=== PATIENT | female | born 1950 | race Caucasian/White ===

== ENCOUNTER 2017-01-31 10:28 | Observation (INO) | payer MEDICARE, OTHER ==
--- NOTE | ~2017-01-31 | HP ---
History And Physical [address] [id number] [facility] [place]. [address] NAME: JACKELINE GARCIA : 50 STATUS : ADM Kenna PAT#: [id number] AGE: 66 ADM/REG DATE : 01/31/17 MR#: [id number] REPORT SERV DATE: 01/31/17 DICTATED BY: MIGUEL NOVAK DATE: 01/31/17 REPORT STATUS : Draft TRANSCRIBED BY: MODFrancesco DATE: 01/31/17 DATE OF ADMISSION: 01/31/2017 OUTPATIENT STRUCTURAL ENGINEERING PROJECT MANAGER: Ricky Foster M.D. OUTPATIENT ULTIMATE HOOPS TRAINER: Mendy Felton MD HISTORY OF PRESENT ILLNESS: This is a 66-year-old female, who comes in for shortness of breath. The patient has been labeled as COPD, but there is no formal test done and no fish bailer whom she has been seeing. She has obstructive sleep apnea, in which she wears CPAP at home, and she said that she is more or less compliant with it. She was doing well and she remembered being exposed to a relative who has pneumonia right now, and three days prior to admission, she started having some low-grade temperature with chills and sweats. This was not documented because her thermometer is not working right. She then started having some congestion, cough productive of yellowish phlegm, mild shortness of breath, but she got scared because of her exposure and her previous history of pneumonia and went to the emergency room. In the ER, the patient was given Solu-Medrol, DuoNeb and they did an ABG on her, which showed 7.39/45/62 on room air, so they were seeing that she was improving and they tried to discharge her. However, her saturation dropped to 88% on minimal exertion. We are now called to admit the patient. The patient is feeling much better now compared to on admission, but she said that she is still not back to her baseline. She denied any hemoptysis, urinary or bowel changes, nausea or vomiting, abdominal pain or chest pain, near syncopal or syncopal episode. No new rashes or no new joint pains, and the rest of 14-point review of systems is negative except as above. PAST MEDICAL HISTORY: Includes a previous thyroidectomy for multinodular goiter, hypertension, hypercholesterolemia, diabetes, rheumatoid arthritis, depression and anxiety, tonsillectomy, bilateral tubal ligation, cataract surgery, bilateral rotator cuff tear repair, bilateral knee replacement, chronic anemia, history of atrial fibrillation with cardioversion, history of CHF. ALLERGIES: SHE IS ALLERGIC TO TRAMADOL, HYDROCODONE, HYDROCHLOROTHIAZIDE AND OFLOXACIN, REACTION OF WHICH I DO NOT KNOW. MEDICATIONS: Include diltiazem, Cymbalta, Lasix, Neurontin, levothyroxine, lisinopril, metformin, Prandin, Xarelto, sulfasalazine, and trazodone. FAMILY HISTORY: Positive for diabetes, hypertension, and rheumatoid arthritis. SOCIAL HISTORY: The patient used to smoke. No alcohol or recreational drug use. PHYSICAL EXAMINATION: GENERAL: The patient is alert and oriented x3, in mild cardiorespiratory distress. VITAL SIGNS: Include blood pressure of 97/56, temperature of 98.6, pulse rate of 97, respirations of 18, saturating at 93% on room air. NECK: She has supple neck. No JVD or carotid bruit. No lymphadenopathy. History And Physical [address] [address] NAME: JACKELINE GARCIA : 50 STATUS : ADM Kenna PAT#: [id number] AGE: 66 ADM/REG DATE : 01/31/17 MR#: [id number] REPORT SERV DATE: 01/31/17 DICTATED BY: MIGUEL NOVAK DATE: 01/31/17 REPORT STATUS : Draft TRANSCRIBED BY: MELODIE DATE: 01/31/17 HEENT: [place] conjunctivae. Anicteric sclerae. No pharyngeal erythema. LUNGS: Fair air entry. Some occasional wheezes. No crackles. HEART: Regular rate and rhythm. No murmurs. ABDOMEN: Positive bowel sounds. Soft and nontender. No masses. EXTREMITIES: Fair pulses. No edema. NEURO: Nonlocalizing. LABORATORY DATA: Reveals a creatinine of 1.14, BUN of 17, glucose of 195. Liver enzymes are normal. Lactate is 2.8. White count of 10.2, H and H of 9.7 and 31.6 with a platelet of 620. Urinalysis is unremarkable. Chest x-ray did not show any acute infiltrates. Flu test is negative. Strep throat is negative. ASSESSMENT: 1. Chronic obstructive pulmonary disease exacerbation. 2. History of obstructive sleep apnea. 3. Acute bronchitis. 4. History of congestive heart failure. 5. History of atrial fibrillation with cardioversion. 6. Diabetes. 7. Chronic anemia. 8. Chronic kidney disease 3. 9. Depression and anxiety. 10.Rheumatoid arthritis. PLAN: The patient likely has a viral infection causing URI and mild COPD exacerbation. Fortunately, she has a normal WBC, afebrile, and an x-ray without infiltrates. We will place her on observation and start IV Solu-Medrol, oxygen, and bronchodilator. We will continue her home meds and have her family bring her CPAP here. Check EKG, hemoglobin A1c, TSH. Place her on subcu insulin protocol. This has been explained to the patient, and she agreed and understood the plan. GIL/MELODIE Miguel Novak M.D. / [id number] CC: Deandre Bertrand Jr, MD Owen F. Speer, DO
--- NOTE | ~2017-01-31 | DS ---
Discharge Summary [facility] [address] [place]. [address] NAME: JACKELINE GARCIA : 50 STATUS : DIS Kenna PAT#: [id number] AGE: 66 ADM/REG DATE : 01/31/17 MR#: [id number] REPORT SERV DATE: 02/02/17 DICTATED BY: MIGUEL NOVAK DATE: 02/01/17 REPORT STATUS : Draft TRANSCRIBED BY: MODL DATE: 02/01/17 ADMISSION DATE: 01/31/2017 DISCHARGE DATE: 02/01/2017 OUTPATIENT COLLECTOR OF PORT: Ricky Foster M.D. OUTPATIENT MILLER HELPER: Mendy Felton M.D. FINAL DIAGNOSES: 1. Chronic obstructive pulmonary disease exacerbation. 2. Acute bronchitis. 3. Obstructive sleep apnea. 4. History of congestive heart failure. 5. History of atrial fibrillation with cardioversion. 6. Diabetes. 7. Chronic anemia. 8. Chronic kidney disease, III. 9. Depression and anxiety. 10.Rheumatoid arthritis. DIAGNOSTIC EXAM: Chest x-ray showing no acute cardiopulmonary disease. HOSPITAL COURSE: Please refer to the H and P done by myself yesterday. Briefly, this is a 66-year-old female, who comes in for shortness of breath. The patient has a history of COPD, but has no formal PFTs done or a dog hair clipper who saw her. She has obstructive sleep apnea for which she uses CPAP at home. The patient got exposed to her family member with pneumonia and then she started having this undocumented fever, chills, and sweats, some increasing shortness of breath, got scared and went to the emergency room. In the ER, the patient was given Solu-Medrol and bronchodilators, was about to be discharged; however, her saturation dropped to 88% on ambulation on room air. She was then referred for observation. The patient got admitted. We did a flu test that was negative. A chest x-ray, which did not show any pneumonia. She remained afebrile with stable vital signs. White count is normal. Lactate was initially elevated at 2.8, which went down to 2.0 and a procalcitonin is 0.07. The patient's saturation on room air remained at 91%. We wanted to put her on oxygen; however, she refused she says she does not want oxygen. She wore her CPAP at night and today at room air, she is already 98%, but it drops down to 88% on ambulation. We offered some oxygen on her and she said she is not ready for that. She knows that it will be coming. Her sister is already on oxygen and she does not want it at this time. The patient feels much better and is assure that she does not have pneumonia so, she is wanting to go home. So, we will be discharging her with the above diagnosis. She will be following up with her PCP, Dr. Lang Chapa, in one to two weeks. Follow up with her Spanish Language Lecturer and Mobile Nurse as needed and as previously scheduled. She will be on the following medications: Cartia 180 mg a day XT, Cymbalta 60 mg a day, Lasix 40 mg a day, Neurontin 800 mg every morning and 1600 mg at bedtime, levothyroxine 137 mcg a day, lisinopril 20 mg a day, Prandin 1 mg three times a day, Xarelto 20 mg at bedtime, sulfasalazine 500 mg three times a day, Desyrel 50 mg at bedtime, metformin 500 mg twice a day, and I will give her a Discharge Summary [address] [address] NAME: JACKELINE GARCIA : 50 STATUS : DIS Kenna PAT#: [id number] AGE: 66 ADM/REG DATE : 01/31/17 MR#: [id number] REPORT SERV DATE: 02/02/17 DICTATED BY: MIGUEL NOVAK DATE: 02/01/17 REPORT STATUS : Draft TRANSCRIBED BY: MELODIE DATE: 02/01/17 Medrol Dosepak and she will get a prescription for Medrol Dosepak to be taken as directed and a prescription for albuterol two puffs q.6 hours p.r.n. shortness of breath. It might be worthwhile when the patient gets better to get a baseline PFTs and if it is grossly abnormal, she might need a dog hair clipper as an outpatient basis, but I will defer this to her PCP. This has been explained to her. TIME SPENT: 40 minutes. GIL/MELODIE Miguel Novak M.D. / [id number] CC: Deandre Bertrand Jr, MD Owen F. Speer, DO Michael Love, M.D. Melinda J. Garcia-Rosell, MD
[~2017-01-31 10:28] MED LIST: ACET500CAP PO; CARDCD300 PO; CENTRUM PO; CYMBALTA60 PO; FORTAMET500 MG PO; GLUMETZA500 MG PO; L20 PO; L40 PO; LISINOPRIL40 MG PO; MEP50TAB PO; MULTIPLE VIT PO; NABUMETONE750 MG PO; NEUR800 PO; NORV25 PO; NORV5 PO; P10 PO; PLAQ200B PO; PRAND1 PO; PRAVACHOL40 MG PO; PRED50B PO; PROAIR HFA INH; RELA5 PO; RYTHMOL225 MG PO; SYN.05 PO; SYN125 PO; T PO; TRAZ50 PO; XARELTO20 MG PO; ZESTRIL20 MG PO; ZOFRAN ODT4 MG PO
[2017-01-31 11:18] LABS: INFLUENZA A SCREEN NEGATIVE (NEGATIVE); INFLUENZA B SCREEN NEGATIVE (NEGATIVE)
[2017-01-31 11:35] LABS: BASOPHILS 0.5 %; BASOPHILS ABSOLUTE 0.05 10/3/uL (0.0-0.16); EOSINOPHILS 1.7 %; EOSINOPHILS ABSOLUTE 0.17 10/3/uL (0.0-0.53); ER CBC TAT 0 Hrs 13 Mins; HEMATOCRIT 31.6 % (36.0-48.0); HEMOGLOBIN 9.7 g/dL (12.0-16.0); IMMATURE GRANULOCYTES 0.2 %; IMMATURE GRANULOCYTES ABSOLUTE 0.02 10/3/uL (0.0-0.11); LYMPHOCYTES 20.3 %; LYMPHOCYTES ABSOLUTE 2.07 10/3/uL (0.67-4.30); MANUAL DIFF NO %; MEAN CORPUS HGB CONC 30.7 g/dL (32.0-36.0); MEAN CORPUSCULAR HEMOGLOB 24.4 pg (26.0-34.0); MEAN CORPUSCULAR VOLUME 79.6 fL (80-100); MEAN PLATELET VOLUME 9.2 fL (9.2-13.0); MONOCYTES 6.5 %; MONOCYTES ABSOLUTE 0.66 10/3/uL (0.21-1.20); NEUTROPHILS 70.8 %; NEUTROPHILS ABSOLUTE 7.24 10/3/uL (2.02-8.40); NUCLEATED RED BLOOD CELLS 0.4 /100WBC (0-0); PLATELET COUNT 620 10/3/uL (150-400); RBC DISTRIBUTION WIDTH 18.7 % (12.0-16.0); RED CELL COUNT 3.97 10/6/uL (4.0-5.6); WHITE BLOOD CELLS 10.2 10/3/uL (4.5-10.5)
[2017-01-31 11:45] LABS: A/G RATIO 0.7 (0.7-1.9); ALBUMIN 3.1 G/DL (3.5-5.0); BUN (BLOOD UREA NITROGEN) 17 MG/DL (6-23); CHLORIDE, SERUM 100 MMOL/L (96-112); CO2 (CARBON DIOXIDE) 28 MMOL/L (24-34); CREATININE 1.14 MG/DL (0.55-1.02); GFR AFRICAN AMERICAN 58 ML/MIN (>=60); GFR NON AFRICAN AMERICAN 50 ML/MIN (>=60); GLOBULIN 4.2 G/DL (2.5-4.1); SGOT(AST) 16 U/L (5-40); SGPT(ALT) 14 U/L (5-65); SODIUM, SERUM 141 MMOL/L (135-148); TOTAL BILIRUBIN 0.2 MG/DL (0-1.2); TOTAL PROTEIN 7.3 G/DL (6.0-8.5)
[2017-01-31 11:46] LABS: ALKALINE PHOSPHATASE 106 U/L (45-117); CALCIUM, SERUM 8.1 MG/DL (8.5-10.4); GLUCOSE, SERUM 195 MG/DL (60-99); POTASSIUM, SERUM 3.6 MMOL/L (3.5-5.3)
[2017-01-31 12:03] LABS: ASCORBIC ACID (UR NOT ORDER) NEG (NEG); BILIRUBIN, URINE NEGATIVE (NEG); ER URINALYSIS TAT 0 Hrs 08 Mins; KETONE, URINE NEGATIVE (NEG); LEUKOCYTE ESTERASE(NOT OR NEG (NEG); NITRITE (URINE) NEG (NEG); WBC (NOT ORDERED) (RFLEX) 2 (0-5)
[2017-01-31] MEDS ORDERED: LEVOTHYROXIN137 MCG PO (13:28)
[2017-01-31] MEDS ORDERED: TAZTIA XT PO (13:29)
[2017-01-31] MEDS ORDERED: L40 PO (13:29)
[2017-01-31] MEDS ORDERED: CYMBALTA60 PO (13:29)
[2017-01-31] MEDS ORDERED: PRIN20 PO (13:29)
[2017-01-31] MEDS ORDERED: TRAZ50 PO (13:31)
[2017-01-31] MEDS ORDERED: FORTAMET500 MG PO (13:32)
[2017-01-31] MEDS ORDERED: NEUR800 PO ×2 (13:32)
[2017-01-31] MEDS ORDERED: SAS500 PO (13:33)
[2017-01-31] MEDS ORDERED: PRAND1 PO (13:33)
[2017-01-31] MEDS ORDERED: XARELTO20 MG PO (13:33)
[2017-01-31 18:12] LABS: FREE T4 1.44 NG/DL (0.76-1.46)
[2017-02-01 02:57] LABS: PROCALCITONIN 0.07 ng/mL (<0.5)
[2017-02-01 08:37] LABS: BUN (BLOOD UREA NITROGEN) 19 MG/DL (6-23); CALCIUM, SERUM 8.9 MG/DL (8.5-10.4); CHLORIDE, SERUM 104 MMOL/L (96-112); CO2 (CARBON DIOXIDE) 24 MMOL/L (24-34); CREATININE 1.04 MG/DL (0.55-1.02); GFR AFRICAN AMERICAN 65 ML/MIN (>=60); GFR NON AFRICAN AMERICAN 56 ML/MIN (>=60); GLUCOSE, SERUM 272 MG/DL (60-99); POTASSIUM, SERUM 3.8 MMOL/L (3.5-5.3); SODIUM, SERUM 140 MMOL/L (135-148)
[2017-02-01] MEDS ORDERED: MEDROLPAK4 PO (09:14)
[2017-02-01] MEDS ORDERED: PROVHFA INH (09:15)
[2017-02-09] MEDS ORDERED: PEP20 PO (16:00)
[2017-02-09] MEDS ORDERED: BREO ELLIPTA INH (16:00)
== END 2017-02-01 09:52 | disposition home or self-care (01) ==
LOC: ER 10:28 → CDU1 15:23 → CDU2 15:47
PROVIDERS: Internal Medicine; Nurse Practitioner Family
DX: J44.1 Chronic obstructive pulmonary disease with (acute) exacerbation (principal); J20.9 Acute bronchitis, unspecified; J44.0 Chronic obstructive pulmonary disease with (acute) lower respiratory infection; G47.33 Obstructive sleep apnea (adult) (pediatric); E78.00 Pure hypercholesterolemia, unspecified; M06.9 Rheumatoid arthritis, unspecified; I13.0 Hypertensive heart and chronic kidney disease with heart failure and stage 1 through stage 4 chronic kidney disease, or unspecified chronic kidney disease; F32.9 Major depressive disorder, single episode, unspecified; F41.9 Anxiety disorder, unspecified; N18.3 Chronic kidney disease, stage 3 (moderate); I48.91 Unspecified atrial fibrillation; E11.22 Type 2 diabetes mellitus with diabetic chronic kidney disease; I50.9 Heart failure, unspecified; D63.1 Anemia in chronic kidney disease; Z99.81 Dependence on supplemental oxygen; Z88.8 Allergy status to other drugs, medicaments and biological substances; Z79.01 Long term (current) use of anticoagulants; Z79.899 Other long term (current) drug therapy; F17.200 Nicotine dependence, unspecified, uncomplicated
CPT/HCPCS: 36600; 71020; 80048; 80053; 81001; 82330; 82803; 82947; 82962; 83605; 83735; 83880; 84132; 84145; 84295; 84439; 84443; 85014; 85025; 87040; 87070; 87804; 87880; 93005; 94640; 96374; 96376; 99284; A9270-GY; G0378; J2920; J2930

== ENCOUNTER 2017-02-17 10:10 | Day surgery (SDC) | payer MEDICARE, OTHER ==
--- NOTE | ~2017-02-17 | EGD ---
EGD REPORT [facility] [address] [address] NAME: JACKELINE COX : 50 STATUS : REG [facility]#: [id number] AGE: 66 ADM/REG DATE : 02/17/17 MR#: [id number] REPORT SERV DATE: 02/17/17 DICTATED BY: RICKY IZAGUIRRE DATE: 02/17/17 REPORT STATUS : Draft TRANSCRIBED BY: [facility] DATE: 02/17/17 Endoscopy Center Patient Name: Jackeline Cox Date of : 1950 Attending MD: RICKY IZAGUIRRE MD Procedure Date No Time: 02/17/2017 Procedure: Upper GI endoscopy Indications: For therapy of gastric polyps Referring MD: Lang Chapa Medicines: Propofol per Anesthesia Complications: No immediate complications. Procedure: Pre-Anesthesia Assessment: - ASA Grade Assessment: IV - A patient with severe systemic disease that is a constant threat to life. After obtaining informed consent, the endoscope was passed under direct vision. Throughout the procedure, the patient's blood pressure, pulse, and oxygen saturations were monitored continuously. The GIF [id number] was introduced through the mouth, and advanced to the duodenal bulb. The upper GI endoscopy was accomplished without difficulty. The patient tolerated the procedure well. Findings: The examined esophagus was normal. A single 15 mm pedunculated and sessile polyp with no bleeding and stigmata of recent bleeding was found on the greater curvature of the gastric body. Area was successfully injected with 5 mL of a 1:10,000 solution of epinephrine for hemostasis. An endoloop was maneuvered over the polyp stalk and closed at the mucosal attachment prior to removal in order to prevent bleeding. Resection and retrieval were complete. Estimated blood loss was minimal. Five hemostatic clips were successfully placed. Bleeding had stopped at the end of the procedure. Impression: - Normal esophagus. - A single gastric polyp. Resected and retrieved. Injected. Clips were placed. Recommendation: - The patient will be observed post-procedure, until all discharge criteria are met. - Continue present medications. - The findings and recommendations were discussed with the patient and their family. - After the procedure, if you experience any pain in abdomen or chest,shortness of breath,fever,chills,blood EGD REPORT [address] [address] NAME: JACKELINE COX : 50 STATUS : REG [facility] [place] PAT#: [id number] AGE: 66 ADM/REG DATE : 02/17/17 MR#: [id number] REPORT SERV DATE: 02/17/17 DICTATED BY: RICKY IZAGUIRRE. DATE: 02/17/17 REPORT STATUS : Draft TRANSCRIBED BY: [employer] DATE: 02/17/17 in stool,rectal bleeding,vomiting of any material,nausea,black stools or weakness or dizziness, GO TO THE EMERGENCY IMMEDIATELY!!!!!!!!! Procedure Code(s): --- Professional --- 37360, Esophagogastroduodenoscopy, flexible, transoral; with control of bleeding, any method 59116, Unlisted procedure, intestine Diagnosis Code(s): --- Professional --- K31.7, Polyp of stomach and duodenum CPT copyright 2013 [employer]. All rights reserved. The codes documented in this report are preliminary and upon wedding florist review may be revised to meet current compliance requirements. Ricky Izaguirre MD RICKY IZAGUIRRE MD 02/17/2017 1:43 PM This report has been signed electronically. Number of Addenda: 0 Note Initiated On: 02/17/2017 12:52 PM Scope Withdrawal Time 0 hours 0 minutes 0 seconds [id number] [id number]
--- NOTE | ~2017-02-17 | OP ---
Record Of Operation [facility] [address] [place]. [address] NAME: JACKELINE GARCIA : 50 [place] : [place] [facility] [place] [id number] AGE: 66 ADM/REG DATE : 02/17/17 MR#: [id number] REPORT SERV DATE: 02/18/17 DICTATED BY: RICKY IZAGUIRRE DATE: 02/17/17 REPORT STATUS : Draft TRANSCRIBED BY: MODL DATE: 02/17/17 DATE OF PROCEDURE: ADDENDUM: Addendum to the EMR note. PROCEDURE: EGD, polypectomy, and clipping. INDICATION: The patient with large hyperplastic gastric polyp which have been bleeding. SEDATION: Diprivan. FINDING: The Olympus video scope was passed into the esophagus, it was normal. In the stomach there was a large gastric polyp with an eroded surface that was on a semi pedunculated. The stalk was injected with epinephrine prior to removal. Endoloop was placed. However, with closure of the endo-loop, the polyp was transected. There was some mild oozing. Five clips were placed on the area with no further bleeding. IMPRESSION: Successful gastric polypectomy with clipping the prevent postprocedure bleeding. MG/MELODIE Ricky Izaguirre M.D. / [id number] CC: Boris Curtis DO
[~2017-02-17 10:10] MED LIST changes: +BREO ELLIPTA INH; +LEVOTHYROXIN137 MCG PO; +MEDROLPAK4 PO; +PEP20 PO; +PRIN20 PO; +PROVHFA INH; +SAS500 PO; +TAZTIA XT PO
== END 2017-02-17 23:59 | disposition home or self-care (01) ==
LOC: DMU 10:10
PROVIDERS: Internal Medicine Gastroenterology
PROC: 0DJ08ZZ Inspection of Upper Intestinal Tract, Via Natural or Artificial Opening Endoscopic (ICD-10-PCS; 2017-02-17)
PROC: 0W3P8ZZ Control Bleeding in Gastrointestinal Tract, Via Natural or Artificial Opening Endoscopic (ICD-10-PCS; principal; 2017-02-17 13:30)
DX: K31.7 Polyp of stomach and duodenum (principal); I11.0 Hypertensive heart disease with heart failure; I50.9 Heart failure, unspecified; E78.00 Pure hypercholesterolemia, unspecified; I48.91 Unspecified atrial fibrillation; J44.9 Chronic obstructive pulmonary disease, unspecified; M79.7 Fibromyalgia; E03.9 Hypothyroidism, unspecified; F41.9 Anxiety disorder, unspecified; D64.9 Anemia, unspecified; E78.5 Hyperlipidemia, unspecified; E11.42 Type 2 diabetes mellitus with diabetic polyneuropathy; Z88.6 Allergy status to analgesic agent; Z87.01 Personal history of pneumonia (recurrent); Z88.8 Allergy status to other drugs, medicaments and biological substances; Z88.1 Allergy status to other antibiotic agents; Z98.890 Other specified postprocedural states
CPT/HCPCS: 82962; 88305; 94640